=== PATIENT | male | born 1960 | race Caucasian/White ===

== ENCOUNTER 2021-09-01 18:21 | Inpatient (IN) ==
--- NOTE | 2021-09-01 18:38 | Emergency Department Note ---
Impression & Plan DKA (diabetic ketoacidosis) ADMIT ED Provider Note HPI: Patient arrived to the ED via EMS ambulance The patient is a 61-year-old male who presents the emergency department with a chief complaint of altered mental status. Patient was reportedly found in his camper, he has been there for an unknown amount of time. He seemed altered, he was covered in feces, he tells me he was unable to get up because he was weak and feeling dizzy. On arrival here to the ED the patient is alert to self and place but not time, he tells me he thinks it is the year 1999. He states he does drink alcohol and he does smoke marijuana, denies any other drug use. He does not have any focal deficits on arrival, he does not display any [id number] testing ataxia. He is otherwise alert and hemodynamically stable on arrival but he is disheveled appearing, per nursing report he was covered in feces and urine on arrival. ROS: -Neuro: Altered mental status, found down -: Urinary incontinence -GI: Fecal incontinence *10 point review systems was conducted and is otherwise negative unless stated above *Outpatient medications and allergy history reviewed PE: General: Alert, NAD HEENT: Normocephalic, atraumatic, trachea midline, dry mucous membranes Eyes: Extraocular eye movement is intact, no scleral erythema Pulmonary: Clear to auscultation bilaterally, no wheezing Cardio: Tachycardic rate with regular rhythm GI: Abdomen is soft, nontender : No suprapubic tenderness MSK: No evidence of trauma or malformation of the extremities, no edema Skin: No evidence of rash Neuro: Alert, no focal deficits Psychiatric: Cooperative telemetry monitor: - An order was placed for continuous cardiac monitoring - Patient was noted to be in sinus rhythm with rate of 98 EKG: Rate: 109 Rhythm: Sinus tachycardia Intervals: Within normal limits ST changes: No ST elevation Time: 1840 CT HEAD: No acute intracranial hemorrhage, mass effect or edema. No evidence of acute cortical stroke. Visualized sinuses and mastoid air cells are clear. C Radiologist: Stephy Garcia M.D. Medical Decision Making: Patient presented with altered mental status, he was found down in his camper in an altered state, patient tells me he felt too unwell to get up and take care of himself or go to the bathroom. He is alert on arrival, he is saturating well on room air, he is mildly confused but he is oriented to place and self. Labwork shows evidence of diabetic ketoacidosis, blood sugar is elevated greater than 600, patient has an anion gap elevation, serum bicarbonate level is 13. Potassium is within normal limits of 4.1. Interventions included multiple IV fluid boluses, initiation of insulin drip. Imaging including CT imaging of the head does not show any evidence of an acute intracranial process. Chest x-ray does not show any evidence of pneumonia. On re-evaluation the patient is more comfortable appearing, remains mildly confused. He tells me on reevaluation when I asked him if he has any history of diabetes "I remember something about diabetes". He denies being on any medications currently for diabetes. Patient was also started on maintenance fluid with 20 of K to be given with initiation of insulin drip. Case was discussed with the on-call hospitalist, Dr Munguia, and the patient was admitted in improved condition for further management. * CRITICAL CARE TIME: 55 minutes -Stabilization of a patient in diabetic ketoacidosis requiring initiation of insulin drip in addition to aggressive IV fluid resuscitation, interpretation of diagnostic studies, time spent at the bedside, discussion with other healthcare providers and arrangement of admission Diagnosis: 1. Diabetic ketoacidosis 2. Altered mental status 3. Deconditioned state, 4. Urinary and fecal incontinence 5. Generalized weakness, inability to accomplish activities of daily living Disposition: Admission Max Mitchell DO Emergency Medicine Past Med/Surg History Medical History No pertinent past medical history Social History Smoking Status: Smoker, status unknown Tobacco Type: Cigarettes Feels Safe at Home: Yes Allergies Allergies Allergy/AdvReac Type Severity Reaction Status Date / Time No Known Allergies Allergy Verified 09/01/21 20:20 Home Meds Home Medications Medication Instructions Recorded Confirmed vitamin E 400 unit capsule 0 unit PO DAILY 11/27/20 09/01/21 Results & Data (ED) Vital Signs Vital Signs - 24 hr 09/01/21 18:29 09/01/21 18:30 09/01/21 18:40 Temperature Temperature Source Pulse Rate 108 H 110 H 112 H Pulse Rate [Left Finger] Pulse Rate from SpO2 Sensor 108 H 113 H Pulse Rhythm Pulse Rhythm [Left Finger] Pulse Strength Pulse Strength [Left Finger] Respiratory Rate 15 18 16 Respiratory Effort / Characteristics Respiratory Depth Respiratory Pattern Blood Pressure 114/85 Blood Pressure [Right Arm] Blood Pressure Mean 94 Blood Pressure Mean [Right Arm] Blood Pressure Position Blood Pressure Position [Right Arm] Pulse Oximetry 97 98 Oxygen Delivery Method Sepsis Recent Fever Within 48 Hours Sepsis New/Unexplained Change in Mental Status Sepsis Action Taken by Nursing 09/01/21 18:44 09/01/21 19:03 09/01/21 20:00 Temperature 36.2 C L Temperature Source Oral Pulse Rate 108 H Pulse Rate [Left Finger] 107 H 108 H Pulse Rate from SpO2 Sensor Pulse Rhythm Regular Pulse Rhythm [Left Finger] Regular Regular Pulse Strength Normal Pulse Strength [Left Finger] Normal Normal Respiratory Rate 24 18 22 Respiratory Effort / Characteristics Spontaneous Non-Labored Spontaneous Respiratory Depth Normal Normal Normal Respiratory Pattern Regular Regular Tachypnea Blood Pressure 147/94 H Blood Pressure [Right Arm] 150/98 H 149/104 H Blood Pressure Mean 111 Blood Pressure Mean [Right Arm] 115 119 Blood Pressure Position Lying Blood Pressure Position [Right Arm] Lying Lying Pulse Oximetry 97 95 94 Oxygen Delivery Method Room Air Room Air Room Air Sepsis Recent Fever Within 48 Hours No Sepsis New/Unexplained Change in Mental Status N/A Sepsis Action Taken by Nursing Previously Notified Laboratory Data Result diagrams: 09/01/21 19:45 09/01/21 20:46 Lab Results 09/01/21 09/01/21 09/01/21 Range/Units 19:45 19:45 19:45 WBC 13.46 H (4.8-10.8) K/uL RBC 5.25 (4.7-6.1) M/uL Hgb 16.0 (14.0-18.0) g/dL Hct 47.4 (42-52) % MCV 90.3 (80-100) fL MCH 30.5 (25-34) pg MCHC 33.8 (32-36) g/dL RDW Std Deviation 43.0 (36.4-46.3) fL RDW Coeff of Andressa 13.1 (11.5-14.5) % Plt Count 276 (130-400) K/uL MPV 11.1 H (7.4-10.4) fL Immature Gran % (Auto) 0.4 % Neut % (Auto) 79.1 % Lymph % (Auto) 15.2 % Stephens % (Auto) 5.1 % Eos % (Auto) 0.1 % Baso % (Auto) 0.1 % Neut # (Auto) 10.66 H (1.4-6.5) K/uL Lymph # (Auto) 2.04 (1.2-3.4) K/uL Stephens # (Auto) 0.69 H (0.11-0.59) K/uL Eos # (Auto) 0.01 (0-0.5) K/uL Baso # (Auto) 0.01 (0-0.2) K/uL Immature Gran # (Auto) 0.05 H (0.00-0.02) K/uL PT 9.8 (9.0-12.0) Seconds INR 1.0 (0.9-1.1) APTT 26.8 (21.0-31.0) Seconds PTT Ratio 1.0 Sodium 134 L (136-145) mmol/L Potassium 4.1 (3.5-5.1) mmol/L Chloride 99 (98-107) mmol/L Carbon Dioxide 13 L (21-32) mmol/L Anion Gap 19.0 H (3-11) BUN 74 H (7-18) mg/dl Creatinine 1.29 (0.6-1.4) mg/dl Est Cr Clr Drug Dosing 70.7 ml/min Est GFR ( Amer) 68.4 ml/min Est GFR (Non-Af Amer) 59.0 ml/min BUN/Creatinine Ratio 57.3 H (10-20) Glucose 639 H* (70-99) mg/dl Lactate (0.4-2.0) mmol/L Calcium 8.6 (8.5-10.1) mg/dl Phosphorus (2.5-4.9) mg/dl Magnesium 2.8 H (1.8-2.4) mg/dl Total Bilirubin 0.5 (0.2-1) mg/dl AST 42 H (15-37) U/L ALT 152 H (12-78) Alkaline Phosphatase 138 H (45-117) U/L Ammonia Total Creatine Kinase 862 H (39-308) U/L Troponin I < 0.015 (0-0.045) ng/ml Total Protein 7.6 (6.4-8.2) gm/dl Albumin 3.0 L (3.4-5.0) gm/dl Globulin 4.6 H (2.5-4.0) gm/dl Albumin/Globulin Ratio 0.7 L (0.9-2) Beta-Hydroxybutyric Acd TNP Procalcitonin (0-0.5) ng/ml Specimen Hemolysis Urine Color Urine Appearance (Clear) Urine pH (4.5-7.5) Ur Specific [place] (1.000-1.030) Urine Protein (Negative) Urine Glucose (UA) (Negative) Urine Ketones (Negative) Urine Blood (Negative) Urine Nitrite (Negative) Urine Bilirubin (Negative) Urine Urobilinogen (Negative) Ur Leukocyte Esterase (Negative) Urine WBC (Auto) (0-5) /hpf Urine RBC (Auto) (0-4) /hpf U Hyaline Cast (Auto) (0-5) /lpf U Epithel Cells (Auto) (0-5) /lpf Urine Bacteria (Auto) (Negative) Urine Opiates Screen (Neg) Ur Methadone, Qual (Neg) Urine Barbiturates (Neg) Ur Phencyclidine (PCP) (Neg) U Amphetamin/Meth Scrn (Neg) MDMA (Ecstasy) Screen (Neg) U Benzodiazepines Scrn (Neg) Ur Cocaine Metabolite (Neg) U Marijuana (THC) Screen (Neg) Ethyl Alcohol mg/dL (0-3) mg/dl 09/01/21 09/01/21 09/01/21 Range/Units 19:45 19:45 19:52 WBC (4.8-10.8) K/uL RBC (4.7-6.1) M/uL Hgb (14.0-18.0) g/dL Hct (42-52) % MCV (80-100) fL MCH (25-34) pg MCHC (32-36) g/dL RDW Std Deviation (36.4-46.3) fL RDW Coeff of Andressa (11.5-14.5) % Plt Count (130-400) K/uL MPV (7.4-10.4) fL Immature Gran % (Auto) % Neut % (Auto) % Lymph % (Auto) % Stephens % (Auto) % Eos % (Auto) % Baso % (Auto) % Neut # (Auto) (1.4-6.5) K/uL Lymph # (Auto) (1.2-3.4) K/uL Stephens # (Auto) (0.11-0.59) K/uL Eos # (Auto) (0-0.5) K/uL Baso # (Auto) (0-0.2) K/uL Immature Gran # (Auto) (0.00-0.02) K/uL PT (9.0-12.0) Seconds INR (0.9-1.1) APTT (21.0-31.0) Seconds PTT Ratio Sodium (136-145) mmol/L Potassium (3.5-5.1) mmol/L Chloride (98-107) mmol/L Carbon Dioxide (21-32) mmol/L Anion Gap (3-11) BUN (7-18) mg/dl Creatinine (0.6-1.4) mg/dl Est Cr Clr Drug Dosing ml/min Est GFR ( Amer) ml/min Est GFR (Non-Af Amer) ml/min BUN/Creatinine Ratio (10-20) Glucose (70-99) mg/dl Lactate < 0.1 L (0.4-2.0) mmol/L Calcium (8.5-10.1) mg/dl Phosphorus (2.5-4.9) mg/dl Magnesium (1.8-2.4) mg/dl Total Bilirubin (0.2-1) mg/dl AST (15-37) U/L ALT (12-78) Alkaline Phosphatase (45-117) U/L Ammonia Cancelled Total Creatine Kinase (39-308) U/L Troponin I (0-0.045) ng/ml Total Protein (6.4-8.2) gm/dl Albumin (3.4-5.0) gm/dl Globulin (2.5-4.0) gm/dl Albumin/Globulin Ratio (0.9-2) Beta-Hydroxybutyric Acd Procalcitonin 0.91 H (0-0.5) ng/ml Specimen Hemolysis Urine Color Urine Appearance (Clear) Urine pH (4.5-7.5) Ur Specific [place] (1.000-1.030) Urine Protein (Negative) Urine Glucose (UA) (Negative) Urine Ketones (Negative) Urine Blood (Negative) Urine Nitrite (Negative) Urine Bilirubin (Negative) Urine Urobilinogen (Negative) Ur Leukocyte Esterase (Negative) Urine WBC (Auto) (0-5) /hpf Urine RBC (Auto) (0-4) /hpf U Hyaline Cast (Auto) (0-5) /lpf U Epithel Cells (Auto) (0-5) /lpf Urine Bacteria (Auto) (Negative) Urine Opiates Screen (Neg) Ur Methadone, Qual (Neg) Urine Barbiturates (Neg) Ur Phencyclidine (PCP) (Neg) U Amphetamin/Meth Scrn (Neg) MDMA (Ecstasy) Screen (Neg) U Benzodiazepines Scrn (Neg) Ur Cocaine Metabolite (Neg) U Marijuana (THC) Screen (Neg) Ethyl Alcohol mg/dL (0-3) mg/dl 09/01/21 09/01/21 09/01/21 Range/Units 19:52 20:46 Unknown WBC (4.8-10.8) K/uL RBC (4.7-6.1) M/uL Hgb (14.0-18.0) g/dL Hct (42-52) % MCV (80-100) fL MCH (25-34) pg MCHC (32-36) g/dL RDW Std Deviation (36.4-46.3) fL RDW Coeff of Andressa (11.5-14.5) % Plt Count (130-400) K/uL MPV (7.4-10.4) fL Immature Gran % (Auto) % Neut % (Auto) % Lymph % (Auto) % Stephens % (Auto) % Eos % (Auto) % Baso % (Auto) % Neut # (Auto) (1.4-6.5) K/uL Lymph # (Auto) (1.2-3.4) K/uL Stephens # (Auto) (0.11-0.59) K/uL Eos # (Auto) (0-0.5) K/uL Baso # (Auto) (0-0.2) K/uL Immature Gran # (Auto) (0.00-0.02) K/uL PT (9.0-12.0) Seconds INR (0.9-1.1) APTT (21.0-31.0) Seconds PTT Ratio Sodium 134 L (136-145) mmol/L Potassium 4.1 (3.5-5.1) mmol/L Chloride 102 (98-107) mmol/L Carbon Dioxide 12 L (21-32) mmol/L Anion Gap 19.0 H (3-11) BUN 75 H (7-18) mg/dl Creatinine 1.27 (0.6-1.4) mg/dl Est Cr Clr Drug Dosing 71.8 ml/min Est GFR ( Amer) 69.7 ml/min Est GFR (Non-Af Amer) 60.2 ml/min BUN/Creatinine Ratio 59.2 H (10-20) Glucose 608 H* (70-99) mg/dl Lactate (0.4-2.0) mmol/L Calcium 9.0 (8.5-10.1) mg/dl Phosphorus 5.8 H (2.5-4.9) mg/dl Magnesium 2.8 H (1.8-2.4) mg/dl Total Bilirubin (0.2-1) mg/dl AST (15-37) U/L ALT (12-78) Alkaline Phosphatase (45-117) U/L Ammonia Total Creatine Kinase (39-308) U/L Troponin I (0-0.045) ng/ml Total Protein (6.4-8.2) gm/dl Albumin (3.4-5.0) gm/dl Globulin (2.5-4.0) gm/dl Albumin/Globulin Ratio (0.9-2) Beta-Hydroxybutyric Acd Procalcitonin (0-0.5) ng/ml Specimen Hemolysis Urine Color Yellow Urine Appearance Clear (Clear) Urine pH 5.0 (4.5-7.5) Ur Specific [place] 1.025 (1.000-1.030) Urine Protein Trace H (Negative) Urine Glucose (UA) 3+ H (Negative) Urine Ketones 1+ H (Negative) Urine Blood 2+ H (Negative) Urine Nitrite Negative (Negative) Urine Bilirubin Negative (Negative) Urine Urobilinogen Negative (Negative) Ur Leukocyte Esterase Negative (Negative) Urine WBC (Auto) 1-5 (0-5) /hpf Urine RBC (Auto) 0-4 (0-4) /hpf U Hyaline Cast (Auto) 1-5 (0-5) /lpf U Epithel Cells (Auto) 10-20 H (0-5) /lpf Urine Bacteria (Auto) Negative (Negative) Urine Opiates Screen (Neg) Ur Methadone, Qual (Neg) Urine Barbiturates (Neg) Ur Phencyclidine (PCP) (Neg) U Amphetamin/Meth Scrn (Neg) MDMA (Ecstasy) Screen (Neg) U Benzodiazepines Scrn (Neg) Ur Cocaine Metabolite (Neg) U Marijuana (THC) Screen (Neg) Ethyl Alcohol mg/dL < 3.0 (0-3) mg/dl 09/01/21 Range/Units Unknown WBC (4.8-10.8) K/uL RBC (4.7-6.1) M/uL Hgb (14.0-18.0) g/dL Hct (42-52) % MCV (80-100) fL MCH (25-34) pg MCHC (32-36) g/dL RDW Std Deviation (36.4-46.3) fL RDW Coeff of Andressa (11.5-14.5) % Plt Count (130-400) K/uL MPV (7.4-10.4) fL Immature Gran % (Auto) % Neut % (Auto) % Lymph % (Auto) % Stephens % (Auto) % Eos % (Auto) % Baso % (Auto) % Neut # (Auto) (1.4-6.5) K/uL Lymph # (Auto) (1.2-3.4) K/uL Stephens # (Auto) (0.11-0.59) K/uL Eos # (Auto) (0-0.5) K/uL Baso # (Auto) (0-0.2) K/uL Immature Gran # (Auto) (0.00-0.02) K/uL PT (9.0-12.0) Seconds INR (0.9-1.1) APTT (21.0-31.0) Seconds PTT Ratio Sodium (136-145) mmol/L Potassium (3.5-5.1) mmol/L Chloride (98-107) mmol/L Carbon Dioxide (21-32) mmol/L Anion Gap (3-11) BUN (7-18) mg/dl Creatinine (0.6-1.4) mg/dl Est Cr Clr Drug Dosing ml/min Est GFR ( Amer) ml/min Est GFR (Non-Af Amer) ml/min BUN/Creatinine Ratio (10-20) Glucose (70-99) mg/dl Lactate (0.4-2.0) mmol/L Calcium (8.5-10.1) mg/dl Phosphorus (2.5-4.9) mg/dl Magnesium (1.8-2.4) mg/dl Total Bilirubin (0.2-1) mg/dl AST (15-37) U/L ALT (12-78) Alkaline Phosphatase (45-117) U/L Ammonia Total Creatine Kinase (39-308) U/L Troponin I (0-0.045) ng/ml Total Protein (6.4-8.2) gm/dl Albumin (3.4-5.0) gm/dl Globulin (2.5-4.0) gm/dl Albumin/Globulin Ratio (0.9-2) Beta-Hydroxybutyric Acd Procalcitonin (0-0.5) ng/ml Specimen Hemolysis Urine Color Urine Appearance (Clear) Urine pH (4.5-7.5) Ur Specific [place] (1.000-1.030) Urine Protein (Negative) Urine Glucose (UA) (Negative) Urine Ketones (Negative) Urine Blood (Negative) Urine Nitrite (Negative) Urine Bilirubin (Negative) Urine Urobilinogen (Negative) Ur Leukocyte Esterase (Negative) Urine WBC (Auto) (0-5) /hpf Urine RBC (Auto) (0-4) /hpf U Hyaline Cast (Auto) (0-5) /lpf U Epithel Cells (Auto) (0-5) /lpf Urine Bacteria (Auto) (Negative) Urine Opiates Screen Neg (Neg) Ur Methadone, Qual Neg (Neg) Urine Barbiturates Neg (Neg) Ur Phencyclidine (PCP) Neg (Neg) U Amphetamin/Meth Scrn Neg (Neg) MDMA (Ecstasy) Screen Neg (Neg) U Benzodiazepines Scrn Neg (Neg) Ur Cocaine Metabolite Neg (Neg) U Marijuana (THC) Screen Neg (Neg) Ethyl Alcohol mg/dL (0-3) mg/dl Administered Medications Discontinued Medications Sodium Chloride (Nss 1000ml) 1,000 mls @ 999 mls/hr IV .Q1H1M [facility] Stop: 09/01/21 19:45 Last Infusion: 09/01/21 20:04 Dose: 0 mls/hr Documented by: [id number] Admin: 09/01/21 18:44 Dose: 999 mls/hr Documented by: [id number] Sodium Chloride (Nss 1000ml) 1,000 mls @ 999 mls/hr IV .Q1H1M [facility] Stop: 09/01/21 21:26 Last Admin: 09/01/21 21:07 Dose: 999 mls/hr Documented by: [id number] Imaging Data Radiologist's Impression: Chest X-Ray 09/01/21 18:33 XR chest 1V portable HISTORY: 61 years-old Male SEPSIS acute sepsis COMPARISON: Left shoulder radiographs 11/27/2020 TECHNIQUE: AP view of the chest FINDINGS: Cardiac silhouette is upper limits of normal in size. No pneumothorax, large pleural effusion, airspace consolidation or overt pulmonary edema. Mild interstitial coarsening of the lung bases. Healed chronic left-sided rib fractures. Degenerative changes of the shoulders and spine. IMPRESSION: Mild interstitial coarsening of the lung bases suggests atelectasis or summation density. A mild pneumonitis is considered less likely. ACT 112: Negative or not required by law. The above report was generated using voice recognition software. It may contain grammatical, syntax or spelling errors. Electronically signed by: Chencho Ross M.D. 09/01/2021 6:52 PM Discharge Plan Visit Data Chief Complaint: Illness Stated Complaint: Illness ED Provider: Max Mitchell Discharge Problem: DKA (diabetic ketoacidosis) Patient Disposition: Admitted As Inpatient Forms Stand Alone Forms: [facility] Prescriptions Prescriptions: No Action vitamin E 400 unit Capsule 0 unit PO DAILY RF: 0 Referrals Referrals: PCP,NO [Primary Care Provider] -
[2021-09-01] MEDS ORDERED: SODIUM CHLORIDE 0.9% 1000ML 1,000 ML IV SCH (18:45)
--- NOTE | 2021-09-01 18:54 | XRay Report ---
XR chest 1V portable HISTORY: 61 years-old Male SEPSIS acute sepsis COMPARISON: Left shoulder radiographs 11/27/2020 TECHNIQUE: AP view of the chest FINDINGS: Cardiac silhouette is upper limits of normal in size. No pneumothorax, large pleural effusion, airspa ce consolidation or overt pulmonary edema. Mild interstitial coarsening of the lung bases. Healed chr onic left-sided rib fractures. Degenerative changes of the shoulders and spine. IMPRESSION: Mild interstitial coarsening of the lung bases suggests atelectasis or summation density. A mild pneumonitis is considered less likely. ACT 112: Negative or not required by law. The above report was generated using voice recognition software. It may contain grammatical, syntax o r spelling errors. Electronically signed by: Chencho Ross M.D. 09/01/2021 6:52 PM
[2021-09-01 19:47] LABS: Appearance Urine Clear (Clear); Bacteria Urine Automated Negative (Negative); Bilirubin Urine Negative (Negative); Blood Urine 2+ (Negative); Color Urine Yellow; Glucose Urine UA 3+ (Negative); Ketones Urine 1+ (Negative); Leukocyte Esterase Urine Negative (Negative); Nitrite Urine Negative (Negative); Protein Urine Trace (Negative); RBC Urine Automated 0-4 /hpf (0-4); Specific Gravity Urine 1.025 (1.000-1.030); Urobilinogen Urine Negative (Negative)
[2021-09-01 19:59] LABS: Basophils # (auto) 0.01 K/uL (0-0.2); Basophils % (auto) 0.1 %; Eosinophils # (auto) 0.01 K/uL (0-0.5); Eosinophils % (auto) 0.1 %; Hematocrit (blood only) 47.4 % (42-52); Immature Granulocytes # (auto) 0.05 K/uL (0.00-0.02); Immature Granulocytes % (auto) 0.4 %; Lymphocytes # (auto) 2.04 K/uL (1.2-3.4); Lymphocytes % (auto) 15.2 %; Mean Corpuscular Hemoglobin 30.5 pg (25-34); Mean Corpuscular Hgb Conc 33.8 g/dL (32-36); Mean Corpuscular Volume 90.3 fL (80-100); Mean Platelet Volume 11.1 fL (7.4-10.4); Monocytes # (auto) 0.69 K/uL (0.11-0.59); Monocytes % (auto) 5.1 %; Neutrophils # (auto) 10.66 K/uL (1.4-6.5); Neutrophils % (auto) 79.1 %; Platelet Count 276 K/uL (130-400); RDW Coefficient of Variation 13.1 % (11.5-14.5); Red Blood Count 5.25 M/uL (4.7-6.1); White Blood Count 13.46 K/uL (4.8-10.8)
[2021-09-01 20:02] LABS: Amphetamines+Metham, Urine Neg (Neg); Barbiturates, Urine Neg (Neg); Benzodiazepine, Urine Neg (Neg); Cocaine, Urine Neg (Neg); MDMA (Ecstacy), Urine Neg (Neg); Methadone, Urine Neg (Neg); Opiate, Urine Neg (Neg); Phencyclidine, Urine Neg (Neg)
[2021-09-01 20:07] LABS: Partial Thromboplastin Time 26.8 Seconds (21.0-31.0); Prothrombin Time 9.8 Seconds (9.0-12.0)
[2021-09-01 20:23] LABS: Alanine Aminotransferase 152 (12-78); Albumin Globulin Ratio 0.7 (0.9-2); Alkaline Phosphatase 138 U/L (45-117); BUN Creatinine Ratio 57.3 (10-20); Bilirubin,Total 0.5 mg/dl (0.2-1); Blood Urea Nitrogen 74 mg/dl (7-18); Calcium 8.6 mg/dl (8.5-10.1); Carbon Dioxide 13 mmol/L (21-32); Chloride 99 mmol/L (98-107); Creatinine Clr Calc Pharmacy 70.7 ml/min; Est GFR (African American) 68.4 ml/min; Globulin 4.6 gm/dl (2.5-4.0); Glucose 639 mg/dl (70-99); Total Protein 7.6 gm/dl (6.4-8.2); Troponin I < 0.015 ng/ml (0-0.045)
[2021-09-01] MEDS ORDERED: SODIUM CHLORIDE 0.9% 1000ML 1,000 ML IV ONE (20:26)
[2021-09-01 20:48] LABS: Potassium 4.1 mmol/L (3.5-5.1); Sodium 134 mmol/L (136-145)
[2021-09-01 20:53] LABS: Aspartate Aminotransferase 42 U/L (15-37); Creatine Kinase 862 U/L (39-308); Magnesium 2.8 mg/dl (1.8-2.4)
[2021-09-01] MEDS ORDERED: STAT IV Infusion **Titration per Protocol STA ×4 (20:56→23:12)
[2021-09-01] MEDS ORDERED: NSS + 20MEQ KCL 20 MEQ/1,000 ML BAG IV SCH (21:00)
[2021-09-01] MEDS ORDERED: INSULIN REGULAR 250 UNITS in SODIUM CHLORIDE 0.9% 247.5 ML IV SCH (21:00)
[2021-09-01] MEDS ORDERED: INSULIN ASPART PER UNIT SC SCH (21:00)
[2021-09-01 21:40] LABS: BUN Creatinine Ratio 59.2 (10-20); Creatinine Clr Calc Pharmacy 71.8 ml/min; Est GFR (African American) 69.7 ml/min; Est GFR (Non-African American) 60.2 ml/min; Magnesium 2.8 mg/dl (1.8-2.4); Phosphorus 5.8 mg/dl (2.5-4.9); Potassium 4.1 mmol/L (3.5-5.1)
[2021-09-01] MEDS ORDERED: NovoLIN-R BOLUS FROM BAG IV ONE (22:00)
[2021-09-01] MEDS: INSULIN REGULAR 250 UNITS in SODIUM CHLORIDE 0.9% 247.5 ML IV SCH (22:10)
[2021-09-01 22:15] LABS: Beta-Hydroxybutyrate 72.44 mg/dl (0.2-2.81)
--- NOTE | 2021-09-02 00:55 | History and Physical Report ---
DATE OF ADMISSION: 09/01/2021. CHIEF COMPLAINT: Altered mental status, DKA. HISTORY OF PRESENT ILLNESS: This is a 61-year-old male with past medical history significant for diabetes. The patient says he was told he was diabetic a long time back in [facility] but not taking any meds..He does not go to the doctor often. He denies any other medical problems, not on any medication at home. He was found to be confused in his camper and with feces all over. The patient says he fell a couple of days ago and he was having imbalance and could not get up. He says he is drinking lot of milk. He says his neighbor found him. Currently, he is alert and awake. Can answer simple questions. Somewhat slow to answer, but answers appropriately. Denies any fever or chills. Denies any cough. No chest pain, no shortness of breath. Denies any nausea, denies any headache. No neck pain, no back pain, no abdominal pain. Has some mild sore throat. Says he had some mild chest pain before, but that is resolved now. Denies any shortness of breath. He has normal bladder movements. He states he smoked half pack of cigarettes for many, many years and occasional alcohol. He smokes marijuana occasionally. He is not COVID vaccinated or flu vaccinated. Currently is somewhat tachycardic. Blood pressure is okay. Saturating okay on room air. ALLERGIES: No known drug allergies. PAST MEDICAL HISTORY: As mentioned above. PAST SURGICAL HISTORY: He says he had tonsillectomy. He had lower extremity surgery for accident. MEDICATIONS: None. FAMILY HISTORY: Unknown at this time. SOCIAL HISTORY: He smokes half pack a day for many years. Alcohol once in a while. He smokes marijuana once in a while. REVIEW OF SYSTEMS: As per HPI. Could not get complete review of systems as the patient is somewhat of a poor historian. PHYSICAL EXAMINATION: GENERAL: The patient is alert and awake, not in acute distress. VITAL SIGNS: Temperature 36.2, pulse 118, respiratory rate 18, blood pressure 152/99, oxygen 97% on room air. HEENT: Pupils equal, round and reactive to light. Oral mucosa moist. NECK: No JVD, no neck masses. CARDIOVASCULAR: S1 and S2 heard. Tachycardia. No murmurs. RESPIRATORY SYSTEM: Normal AP diameter. No accessory muscle use. No wheezing, no crackles. ABDOMEN: Soft, bowel sounds present, nontender, no distention. CENTRAL NERVOUS SYSTEM: Alert, awake, and seems oriented. Speech is clear, somewhat slow to speak. No facial droop. Obeys simple commands. Moves extremities. Insight okay. EXTREMITIES: No edema, no erythema. LABORATORY DATA: WBC 13.4, hemoglobin 16, hematocrit 47.4, platelets 276. PT 9.8, INR 1, APTT 26.8. Sodium 134, potassium 4.1, chloride 102, bicarbonate 12, BUN 75, creatinine 1.2, serum glucose 608. Lactate less than 0.1, calcium 9, phosphorus 5.8, magnesium 2.8, total bilirubin 0.5, AST 242, ALT 152, alkaline phosphatase 138. Total creatine kinase 862. Troponin I less than 0.015. Procalcitonin 0.9. Urinalysis, +3 glucose, ketones, +2 blood. Urine drug screen negative. Alcohol negative. SARS-CoV-2 RNA negative. IMAGING DATA: CT of the head, preliminary report is unremarkable. Chest x-ray, mild interstitial coarsening in lung bases and atelectasis, mild pneumonitis is considered less likely. EKG: Sinus tachycardia at a rate of 109, no significant change was found. ASSESSMENT AND PLAN: This is a 61-year-old male who presents with altered mental status and found to have diabetic ketoacidosis. 1. Diabetic ketoacidosis: Metabolic encephalopathy most likely secondary to diabetic ketoacidosis. The patient says he was told he has diabetes a long time back, but does not taking any medications. Aggressive IV fluids, insulin drip protocol as per DKA protocol, labs as per DKA protocol. Follow HbA1c in the a.m. Will continue insulin drip and maintenance fluids until anion gap is closed, then may change to sliding scale. Glycemic pharmacy consult. Diabetic education. Closely monitor in the [employer]. 2. Currently, somewhat hypertension, will monitor. 3. Rhabdomyolysis: CK of 862, mild transaminitis. Will follow the repeat labs. If still elevated, will get a CT scan of the abdomen. 4. Mild elevation of procalcitonin and mild leukocytosis: Empirically started on Rocephin. Will follow the labs. 5. Deep venous thrombosis prophylaxis: Lovenox. DISPOSITION: Closely monitor in the [employer] tele. Level 1 full code. Expect to discharge home and follow with family doctor. Job ID: [id number] [facility] HOSPITALBernie
[2021-09-02 01:39] LABS: BUN Creatinine Ratio 53.1 (10-20); Creatinine Clr Calc Pharmacy 74.8 ml/min; Est GFR (African American) 73.2 ml/min; Est GFR (Non-African American) 63.1 ml/min; Magnesium 2.7 mg/dl (1.8-2.4); Phosphorus 3.8 mg/dl (2.5-4.9); Potassium 3.3 mmol/L (3.5-5.1)
[2021-09-02] MEDS ORDERED: ACETAMINOPHEN 325 MG TAB PO PRN (02:26)
[2021-09-02] MEDS ORDERED: PENDING D5 1/2NS+20mEq KCL IVF ONE (02:26)
[2021-09-02] MEDS ORDERED: ONDANSETRON INJ 2 MG/ML 2 ML VIAL IV PRN (02:26)
[2021-09-02] MEDS ORDERED: DC ALL PREVIOUSLY ORDERED DIABETES MEDS ONE (02:26)
[2021-09-02] MEDS ORDERED: PHARMACY GLYCEMIC MGMT CONSULT PRN (02:26)
[2021-09-02] MEDS ORDERED: NITROGLYCERIN SL 0.4 MG/TAB TAB SL PRN (02:26)
[2021-09-02] MEDS ORDERED: PENDING 1/2NSS+20mEq KCL IVF SCH (02:26)
[2021-09-02] MEDS ORDERED: INSULIN REGULAR 250 UNITS in SODIUM CHLORIDE 0.9% 247.5 ML IV SCH (02:26)
[2021-09-02] MEDS ORDERED: DEXTROSE 50% 50 ML SYRINGE IV PRN (03:15)
[2021-09-02] MEDS ORDERED: CARBOHYDRATES FOR HYPOGLYCEMIA PO PRN (03:15)
[2021-09-02] MEDS ORDERED: GLUCOSE 10 TABS/TUBE PO PRN (03:15)
[2021-09-02] MEDS ORDERED: GLUCAGON FOR INJ 1 MG VIAL IM PRN (03:15)
[2021-09-02] MEDS ORDERED: GLUCOSE 40% GEL 15 GM TUBE PO PRN (03:15)
[2021-09-02] MEDS: cefTRIAXone SODIUM 2,000 MG in DEXTROSE 5% 50 ML IV SCH (03:36)
[2021-09-02] MEDS ORDERED: POTASSIUM CHLORIDE CRTAB 20 MEQ TABCR PO STA (04:23)
[2021-09-02 06:09] LABS: BUN Creatinine Ratio 51.9 (10-20); Calcium 8.7 mg/dl (8.5-10.1); Est GFR (African American) 86.8 ml/min; Est GFR (Non-African American) 74.8 ml/min; Magnesium 2.6 mg/dl (1.8-2.4); Potassium 3.4 mmol/L (3.5-5.1)
[2021-09-02 06:10] LABS: Phosphorus 2.6 mg/dl (2.5-4.9)
[2021-09-02 06:16] LABS: Alanine Aminotransferase 118 (12-78); Albumin Level 2.8 gm/dl (3.4-5.0); Alkaline Phosphatase 99 U/L (45-117); Aspartate Aminotransferase 46 U/L (15-37); Bilirubin Direct 0.1 mg/dl (0-0.2); Bilirubin,Total 0.4 mg/dl (0.2-1); Creatine Kinase 759 U/L (39-308); Total Protein 6.7 gm/dl (6.4-8.2); Troponin I < 0.015 ng/ml (0-0.045)
[2021-09-02 07:55] LABS: Estimated Average Glucose 372 mg/dl; Hemoglobin A1C 14.6 % (4.5-5.6)
--- NOTE | 2021-09-02 07:57 | CT Scan Report ---
CT OF THE HEAD WITHOUT CONTRAST CLINICAL HISTORY: Altered mental status. COMPARISON STUDY: No previous studies for comparison. CT DOSE: 614.27 mGy.cm TECHNIQUE: Helical axial images of the head were obtained without IV contrast. Automated exposure con trol was utilized for the study. A dose lowering technique was utilized adhering to the principles o f ALARA. FINDINGS: No acute intracranial hemorrhage, midline shift or mass effect is present. Mild white matte r hypodensities favor small vessel disease. The ventricular system is unremarkable. The basal cistern s are patent. No extra-axial collections are present. There are no findings to suggest acute dural si nus thrombosis or acute territorial infarct. No significant calvarial abnormalities are present. Visu alized portions of the sinuses and mastoid air cells are clear. IMPRESSION: No acute intracranial findings. ACT 112: Negative or not required by law. Electronically signed by: Shravan Martinez M.D. 09/02/2021 7:55 AM
[2021-09-02] MEDS: ENOXAPARIN INJ 40 MG/0.4 ML SYR SQ SCH (08:16)
[2021-09-02] MEDS: D5W AND 1/2NSS + 20MEQ KCL 20 MEQ/1,000 ML BAG IV SCH ×2 (09:25→17:40)
[2021-09-02] MEDS: INSULIN ASPART PER UNIT SC SCH ×4 (09:45→20:45)
[2021-09-02 11:17] LABS: BUN Creatinine Ratio 45.8 (10-20); Calcium 8.8 mg/dl (8.5-10.1); Creatinine Clr Calc Pharmacy 92.1 ml/min; Est GFR (African American) 94.2 ml/min; Est GFR (Non-African American) 81.3 ml/min; Magnesium 2.6 mg/dl (1.8-2.4); Phosphorus 2.1 mg/dl (2.5-4.9); Potassium 3.7 mmol/L (3.5-5.1)
[2021-09-02] MEDS ORDERED: INSULIN GLARGINE SOLOSTAR 100 UNITS/ML 3 ML PEN SC ONE ×2 (13:30→21:00)
--- NOTE | 2021-09-02 13:57 | Pharmacy Report ---
Pharmacy Glycemic Short Note 2 - Date of Service September 02, 2021 - Glycemic Short BSG Results (Last 24 hours): 09/01/21 09/01/21 09/01/21 19:45 20:46 22:08 Glucose 639 H* 608 H* POC Glucose 535 H* 09/01/21 09/02/21 09/02/21 23:18 00:54 01:11 Glucose 237 H POC Glucose 415 H* 296 H 09/02/21 09/02/21 09/02/21 01:34 02:38 03:27 Glucose POC Glucose 228 H 227 H 182 H 09/02/21 09/02/21 09/02/21 04:44 05:27 05:37 Glucose 215 H POC Glucose 218 H 228 H 09/02/21 09/02/21 09/02/21 07:17 08:25 09:23 Glucose POC Glucose 326 H* 273 H 206 H 09/02/21 09/02/21 09/02/21 10:26 10:31 11:28 Glucose 206 H POC Glucose 271 H 227 H 09/02/21 09/02/21 12:24 13:24 Glucose POC Glucose 172 H 143 H OUTPATIENT ANTIDIABETIC REGIMEN: * N/A * A1c 14.6% 09/02/21 ASSESSMENT: * 61 year old admitted with AMS, DKA, uncontrolled diabetic on no anti-diabetic medications at home. * Started on insulin drip and DKA protocol last night, remains on D51/2NS + 20KCl IVF, IV Ceftriaxone, patient is NPO * Drip rat running 10-3.8units/hr, in goal range, anion gap closed * Start basal insulin at this time, overlap x 6 hours or stop insulin drip when it turns off per calculator PLAN FOR INPATIENT GLYCEMIC CONTROL: * IV Insulin drip, goal range 110-180mg/dl * Basal insulin * Lantus 50 units SQ x 1 now, then 25 units HS For BSG > 180mg/dl, then further dosing in AM * Bolus insulin: When insulin drip is off * NovoLog per scale ACHS or Q6hrs while NPO + overnight tonight at 0000 and 0 400 * Goal Range: Low 110 mg/dL - High 140 mg/dL * Correction Factor: 15 mg/dL/unit * Nutritional / Prandial insulin per carb ratio of 1 unit per 5 grams CHO consumed PLAN FOR DISCHARGE: * to be determined, recommend at least once daily Lantus
[2021-09-02 14:41] LABS: BUN Creatinine Ratio 45.8 (10-20); Calcium 8.3 mg/dl (8.5-10.1); Creatinine Clr Calc Pharmacy 109.9 ml/min; Est GFR (African American) 109.3 ml/min; Est GFR (Non-African American) 94.3 ml/min; Magnesium 2.4 mg/dl (1.8-2.4); Potassium 3.8 mmol/L (3.5-5.1)
[2021-09-02 14:42] LABS: Phosphorus 1.7 mg/dl (2.5-4.9)
[2021-09-02] MEDS ORDERED: Nursing to Pharmacy Communication SCH (16:00)
--- NOTE | 2021-09-02 16:30 | Hospitalist Progress Note ---
Date of Service September 02, 2021 Assessment & Plan (1) DKA (diabetic ketoacidosis): Plan: He has history of diabetes but has not been to a doctor for a long time Was admitted with altered mental status and in an unkept condition Noted to have DKA on admission Has been put on intravenous insulin and fluid with electrolytes Glycemic pharmacy has been consulted Has been feeling better since admission (2) Altered mental status: Plan: Likely secondary to diabetic ketoacidosis Doubt any infection but ceftriaxone has been started Has minimal leukocytosis could be secondary to ketoacidosis (3) Leukocytosis: Plan: As above Mild rhabdomyolysis He was found on the floor CK is 862 Has been getting intravenous fluid and monitor CK Mild transaminitis Likely secondary to fatty liver We will monitor DVT prophylaxis Subcu Lovenox Admission and Anticipated Discharge Date Admission Date: September 01, 2021 Subjective 09/02/2021 The patient was seen and examined in medical telemetry unit She has been feeling much better and the confusion is seems to be resolving Denies any other symptoms Review of Systems Review of Systems: All systems reviewed and are unremarkable except as noted below Physical Exam Physical Exam: Lying in bed comfortably Constitutional: well developed, well nourished, + ill appearing and + obese Eyes: PERRL, conjunctivae normal, anicteric sclerae ENMT: external ear and nose normal, oropharynx normal Neck: trachea midline, no thyromegaly Respiratory: no respiratory distress Auscultation: lungs clear to auscultation bilaterally and + diminished lung sounds Cardiovascular: Rate/Rhythm: regular rate, regular rhythm and + tachycardic Heart Sounds: normal S1 and normal S2; no murmur Extremities: + edema (1+ edema bilaterally) Gastrointestinal (Abdomen): Inspection/Auscultation: + abdomen distended and normal bowel sounds Percussion/Palpation: abdomen soft; abdomen nontender Musculoskeletal: No acute arthritis in any joint Neurologic: Alert, awake and oriented x3. No focal sensory and motor deficit appreciated Lymphatic: no cervical or axillary lymphadenopathy Results & Data Results & Data ([facility]) Vital Signs (Past 12 Hours) Vital Signs Pulse Pulse Resp BP Pulse Ox 09/02/21 16:00 99 H 09/02/21 15:06 92 H 18 124/81 96 09/02/21 11:39 98 H 19 156/97 H 95 09/02/21 07:23 101 H 23 126/78 95 09/02/21 06:37 101 H 14 128/85 98 Laboratory Results Short CBC 09/01/21 Range/Units 19:45 WBC 13.46 H (4.8-10.8) K/uL Hgb 16.0 (14.0-18.0) g/dL Hct 47.4 (42-52) % Plt Count 276 (130-400) K/uL BMP 09/01/21 09/01/21 09/02/21 19:45 20:46 01:11 Sodium 134 L 134 L 138 Potassium 4.1 4.1 3.3 L D Chloride 99 102 107 Carbon Dioxide 13 L 12 L 18 L BUN 74 H 75 H 65 H Creatinine 1.29 1.27 1.22 Glucose 639 H* 608 H* 237 H Calcium 8.6 9.0 9.0 09/02/21 09/02/21 09/02/21 05:27 10:31 14:18 Sodium 136 137 139 Potassium 3.4 L 3.7 3.8 Chloride 107 109 H 111 H Carbon Dioxide 22 BUN 55 H 45 H 38 H Creatinine 1.06 0.99 0.83 Glucose 215 H 206 H 160 H Calcium 8.7 8.8 8.3 L Cardiac Enzymes 09/01/21 09/02/21 Range/Units 19:45 05:27 Total Creatine Kinase 862 H 759 H (39-308) U/L Troponin I < 0.015 < 0.015 (0-0.045) ng/ml Liver Function 09/01/21 09/02/21 Range/Units 19:45 05:27 Total Bilirubin 0.5 0.4 (0.2-1) mg/dl Direct Bilirubin 0.1 (0-0.2) mg/dl AST 42 H 46 H (15-37) U/L ALT 152 H 118 H (12-78) Alkaline Phosphatase 138 H 99 (45-117) U/L Albumin 3.0 L 2.8 L (3.4-5.0) gm/dl Urine 09/01/21 Range/Units Unknown Urine Color Yellow Urine Appearance Clear (Clear) Urine pH 5.0 (4.5-7.5) Ur Specific [place] 1.025 (1.000-1.030) Urine Protein Trace H (Negative) Urine Glucose (UA) 3+ H (Negative) Medications Administered Current Inpatient Medications Acetaminophen (Acetaminophen 325 Mg Tab) 650 mg PO Q4H PRN PRN Reason: Pain or Fever Stop: 10/02/21 02:25 Dextrose (Dextrose 50% 50 Ml Syringe) 25 - 50 ml IV UD PRN; Protocol PRN Reason: Hypoglycemia Protocol Stop: 10/02/21 03:14 Enoxaparin Sodium (Enoxaparin Inj 40 Mg/0.4 Ml Syr) 40 mg SQ Q24H [facility] Stop: 10/02/21 08:59 Last Admin: 09/02/21 08:16 Dose: 40 mg Documented by: Glucagon (Glucagon For Inj 1 Mg Vial) 1 mg IM UD PRN; Protocol PRN Reason: Hypoglycemia Protocol Stop: 10/02/21 03:14 Glucose (Glucose 40% Gel 15 Gm Tube) 15 - 30 gm PO UD PRN; Protocol PRN Reason: Hypoglycemia Protocol Stop: 10/02/21 03:14 Glucose (Glucose 10 Tabs/Tube) 4 - 8 tabs PO UD PRN; Protocol PRN Reason: Hypoglycemia Protocol Stop: 10/02/21 03:14 Insulin Human Regular 250 (units/ Sodium Chloride) 250 mls @ 4.6 mls/hr IV .Q24H [facility]; Protocol Stop: 10/01/21 20:59 Last Titration: 09/02/21 15:45 Dose: 4.6 units/hr, 4.6 mls/hr Documented by: Potassium Chloride/Dextrose/Sod Cl (D5w And 1/2nss + 20meq Kcl) 20 meq in 1,000 mls @ 150 mls/hr IV .Q6H40M [facility] Stop: 10/02/21 02:44 Last Admin: 09/02/21 09:25 Dose: 150 mls/hr Documented by: Ceftriaxone Sodium 2,000 mg/ (Dextrose) 70 mls @ 100 mls/hr IV Q24H [facility]; Protocol Stop: 09/04/21 02:59 Last Infusion: 09/02/21 04:21 Dose: Infused Documented by: Insulin Aspart (Insulin Aspart Per Unit) 0 units SC ACHS [facility] Stop: 10/02/21 07:29 Last Admin: 09/02/21 11:36 Dose: Not Given Documented by: Insulin Glargine (Insulin Glargine Solostar 100 Units/Ml 3 Ml Pen) 0 units SC HS ONE; Protocol Stop: 09/02/21 21:01 Miscellaneous (Carbohydrates For Hypoglycemia ) 15 - 30 gm PO UD PRN PRN Reason: Hypoglycemia Treatment Stop: 10/02/21 03:14 Miscellaneous Information (Pharmacy Glycemic Mgmt Consult) 1 ea N/A UD PRN PRN Reason: Consult Stop: 10/02/21 02:25 Nitroglycerin (Nitroglycerin Sl 0.4 Mg/Tab Tab) 0.4 mg SL UD PRN PRN Reason: Chest Pain Stop: 10/02/21 02:25 Ondansetron HCl (Ondansetron Inj 2 Mg/Ml 2 Ml Vial) 4 mg IV Q6H PRN PRN Reason: Nausea Stop: 10/02/21 02:25 (1) DKA (diabetic ketoacidosis) Diabetes mellitus complication detail: without coma Diabetes mellitus type: other specified (including PARESH) Qualified Code(s): E13.10 - Other specified diabetes mellitus with ketoacidosis without coma
[2021-09-02] MEDS ORDERED: POTASSIUM PHOS 3 MMOL/1 ML INFUSION IV STA (18:43)
[2021-09-02] MEDS ORDERED: POTASSIUM PHOSPHATE 24 MMOL in SODIUM CHLORIDE 0.9% 500 ML IV ONE (19:00)
[2021-09-02 19:04] LABS: BUN Creatinine Ratio 39.1 (10-20); Calcium 8.2 mg/dl (8.5-10.1); Creatinine Clr Calc Pharmacy 108.6 ml/min; Est GFR (African American) 108.8 ml/min; Est GFR (Non-African American) 93.8 ml/min; Magnesium 2.4 mg/dl (1.8-2.4); Potassium 3.5 mmol/L (3.5-5.1)
[2021-09-02 19:29] LABS: Phosphorus 1.4 mg/dl (2.5-4.9)
[2021-09-02] MEDS: SODIUM CHLORIDE 0.45 % 1,000 ML IV SCH (21:53)
[2021-09-02 23:17] LABS: BUN Creatinine Ratio 32.5 (10-20); Creatinine Clr Calc Pharmacy 109.9 ml/min; Est GFR (African American) 109.3 ml/min; Est GFR (Non-African American) 94.3 ml/min; Magnesium 2.3 mg/dl (1.8-2.4); Potassium 3.8 mmol/L (3.5-5.1)
[2021-09-02 23:25] LABS: Phosphorus 2.2 mg/dl (2.5-4.9)
[2021-09-02] MEDS: INSULIN REGULAR 250 UNITS in SODIUM CHLORIDE 0.9% 247.5 ML IV SCH (23:35)
[2021-09-03] MEDS: INSULIN ASPART PER UNIT SC SCH ×6 (00:03→21:08)
[2021-09-03] MEDS: cefTRIAXone SODIUM 2,000 MG in DEXTROSE 5% 50 ML IV SCH (04:17)
[2021-09-03] MEDS: SODIUM CHLORIDE 0.45 % 1,000 ML IV SCH (06:04)
[2021-09-03 06:11] LABS: Eosinophils # (auto) 0.07 K/uL (0-0.5); Hematocrit (blood only) 40.9 % (42-52); Hemoglobin 13.9 g/dL (14.0-18.0); Immature Granulocytes # (auto) 0.01 K/uL (0.00-0.02); Immature Granulocytes % (auto) 0.1 %; Lymphocytes % (auto) 32.7 %; Mean Corpuscular Hemoglobin 30.2 pg (25-34); Mean Corpuscular Volume 88.7 fL (80-100); Mean Platelet Volume 10.3 fL (7.4-10.4); Monocytes # (auto) 0.59 K/uL (0.11-0.59); Monocytes % (auto) 8.8 %; Neutrophils # (auto) 3.85 K/uL (1.4-6.5); Neutrophils % (auto) 57.4 %; Platelet Count 228 K/uL (130-400); RDW Coefficient of Variation 13.7 % (11.5-14.5); RDW Standard Deviation 44.8 fL (36.4-46.3); Red Blood Count 4.61 M/uL (4.7-6.1); White Blood Count 6.72 K/uL (4.8-10.8)
[2021-09-03 06:32] LABS: BUN Creatinine Ratio 28.5 (10-20); Est GFR (African American) 112.7 ml/min; Est GFR (Non-African American) 97.3 ml/min; Magnesium 2.4 mg/dl (1.8-2.4); Phosphorus 1.8 mg/dl (2.5-4.9); Potassium 3.5 mmol/L (3.5-5.1)
--- NOTE | 2021-09-03 07:19 | Electrocardiogram Report ---
Test Reason : Blood Pressure : / mmHG Vent. Rate : 109 BPM Atrial Rate : 109 BPM P-R Int : 132 ms QRS Dur : 090 ms QT Int : 324 ms P-R-T Axes : 085 088 -53 degrees QTc Int : 436 ms Poor data quality, interpretation may be adversely affected Sinus tachycardia Cannot rule out Anterior infarct , age undetermined T wave abnormality, consider inferior ischemia Abnormal ECG No previous ECGs available Confirmed by Juan Cast ([id number]) on 09/03/2021 7:19:25 AM Referred By: REFERRED SELF Confirmed By:Juan Cast
[2021-09-03] MEDS: ENOXAPARIN INJ 40 MG/0.4 ML SYR SQ SCH (09:14)
[2021-09-03] MEDS: INSULIN GLARGINE SOLOSTAR 100 UNITS/ML 3 ML PEN SC SCH (09:14)
[2021-09-03] MEDS ORDERED: POTASSIUM PHOS 3 MMOL/1 ML INFUSION IV STA (09:14)
[2021-09-03] MEDS ORDERED: POTASSIUM PHOSPHATE 30 MMOL in SODIUM CHLORIDE 0.9% 500 ML IV ONE (09:45)
--- NOTE | 2021-09-03 16:40 | Hospitalist Progress Note ---
Date of Service September 03, 2021 Assessment & Plan (1) DKA (diabetic ketoacidosis): Plan: He has history of diabetes but has not been to a doctor for a long time Was admitted with altered mental status and in an unkept condition Noted to have DKA on admission Has been put on intravenous insulin and fluid with electrolytes Glycemic pharmacy has been consulted Has been feeling better since admission Insulin drip has been discontinued and getting subcu insulin as directed (2) Altered mental status: Plan: Likely secondary to diabetic ketoacidosis Doubt any infection but ceftriaxone has been started Has minimal leukocytosis could be secondary to ketoacidosis Blood cultures have been negative and will discontinue intravenous ceftriaxone Change in mental status -resolved (3) Leukocytosis: Plan: As above Leukocytosis has resolved Mild rhabdomyolysis He was found on the floor CK is 862 Has been getting intravenous fluid and monitor CK-has been improving with check it tomorrow Mild transaminitis Likely secondary to fatty liver We will monitor DVT prophylaxis Subcu Lovenox Admission and Anticipated Discharge Date Admission Date: September 01, 2021 Subjective 09/02/2021 The patient was seen and examined in medical telemetry unit She has been feeling much better and the confusion is seems to be resolving Denies any other symptoms 09/03/2021 The patient was seen and examined in medical telemetry unit He has been feeling much better today No more drowsiness and denies any significant symptoms Review of Systems Review of Systems: All systems reviewed and are unremarkable except as noted below Musculoskeletal: Week Physical Exam Physical Exam: Lying in bed comfortably Constitutional: well developed, well nourished, + ill appearing and + obese Eyes: PERRL, conjunctivae normal, anicteric sclerae ENMT: external ear and nose normal, oropharynx normal Neck: trachea midline, no thyromegaly Respiratory: no respiratory distress Auscultation: lungs clear to ausculta tion bilaterally and + diminished lung sounds Cardiovascular: Rate/Rhythm: regular rate, regular rhythm and + tachycardic Heart Sounds: normal S1 and normal S2; no murmur Extremities: + edema (1+ edema bilaterally) Gastrointestinal (Abdomen): Inspection/Auscultation: + abdomen distended and normal bowel sounds Percussion/Palpation: abdomen soft; abdomen nontender Musculoskeletal: No acute arthritis in any joint Neurologic: Alert, awake and oriented x3. Generally weak but no focal sensory or no motor deficit appreciated Lymphatic: no cervical or axillary lymphadenopathy Results & Data Results & Data ([facility]) Vital Signs (Past 12 Hours) Vital Signs Temp Pulse Pulse Resp BP BP Pulse Ox 09/03/21 16:00 36.9 C 85 18 138/81 95 09/03/21 09:07 36.7 C 93 H 18 128/79 98 09/03/21 07:41 91 H Laboratory Results Short CBC 09/03/21 Range/Units 05:45 WBC 6.72 (4.8-10.8) K/uL Hgb 13.9 L (14.0-18.0) g/dL Hct 40.9 L (42-52) % Plt Count 228 (130-400) K/uL BMP 09/02/21 09/02/21 09/03/21 18:35 22:46 05:45 Sodium 138 139 139 Potassium 3.5 3.8 3.5 Chloride 110 H 110 H 111 H Carbon Dioxide 23 20 L 20 L BUN 33 H 27 H 22 H Creatinine 0.84 0.83 0.77 Glucose 132 H 143 H 171 H Calcium 8.2 L 8.0 L 8.0 L Medications Administered Current Inpatient Medications Acetaminophen (Acetaminophen 325 Mg Tab) 650 mg PO Q4H PRN PRN Reason: Pain or Fever Stop: 10/02/21 02:25 Dextrose (Dextrose 50% 50 Ml Syringe) 25 - 50 ml IV UD PRN; Protocol PRN Reason: Hypoglycemia Protocol Stop: 10/02/21 03:14 Enoxaparin Sodium (Enoxaparin Inj 40 Mg/0.4 Ml Syr) 40 mg SQ Q24H [facility] Stop: 10/02/21 08:59 Last Admin: 09/03/21 09:14 Dose: 40 mg Documented by: Glucagon (Glucagon For Inj 1 Mg Vial) 1 mg IM UD PRN; Protocol PRN Reason: Hypoglycemia Protocol Stop: 10/02/21 03:14 Glucose (Glucose 40% Gel 15 Gm Tube) 15 - 30 gm PO UD PRN; Protocol PRN Reason: Hypoglycemia Protocol Stop: 10/02/21 03:14 Glucose (Glucose 10 Tabs/Tube) 4 - 8 tabs PO UD PRN; Protocol PRN Reason: Hypoglycemia Protocol Stop: 10/02/21 03:14 Ceftriaxone Sodium 2,000 mg/ (Dextrose) 70 mls @ 100 mls/hr IV Q24H [facility]; Pr otocol Stop: 09/04/21 02:59 Last Infusion: 09/03/21 05:17 Dose: Infused Documented by: Insulin Aspart (Insulin Aspart Per Unit) 0 units SC ACHS [facility] Stop: 10/03/21 11:29 Last Admin: 09/03/21 12:18 Dose: 4 units Documented by: Insulin Glargine (Insulin Glargine Solostar 100 Units/Ml 3 Ml Pen) 40 units SC DAILY [facility]; Protocol Stop: 10/03/21 08:59 Last Admin: 09/03/21 09:14 Dose: 40 units Documented by: Miscellaneous (Carbohydrates For Hypoglycemia ) 15 - 30 gm PO UD PRN PRN Reason: Hypoglycemia Treatment Stop: 10/02/21 03:14 Miscellaneous Information (Pharmacy Glycemic Mgmt Consult) 1 ea N/A UD PRN PRN Reason: Consult Stop: 10/02/21 02:25 Nitroglycerin (Nitroglycerin Sl 0.4 Mg/Tab Tab) 0.4 mg SL UD PRN PRN Reason: Chest Pain Stop: 10/02/21 02:25 Ondansetron HCl (Ondansetron Inj 2 Mg/Ml 2 Ml Vial) 4 mg IV Q6H PRN PRN Reason: Nausea Stop: 10/02/21 02:25 (1) DKA (diabetic ketoacidosis) Diabetes mellitus complication detail: without coma Diabetes mellitus type: other specified (including PARESH) Qualified Code(s): E13.10 - Other specified diabetes mellitus with ketoacidosis without coma
[2021-09-03] MEDS ORDERED: LOPERAMIDE HCL 2 MG CAP PO PRN (16:47)
[2021-09-03] MEDS: INSULIN REGULAR 250 UNITS in SODIUM CHLORIDE 0.9% 247.5 ML IV SCH (19:30)
[2021-09-03] MEDS ORDERED: INSULIN ASPART PER UNIT SC SCH (21:30)
[2021-09-04 08:02] LABS: Albumin Globulin Ratio 0.7 (0.9-2); Albumin Level 2.3 gm/dl (3.4-5.0); Bilirubin,Total 0.4 mg/dl (0.2-1); Calcium 7.8 mg/dl (8.5-10.1); Creatinine Clr Calc Pharmacy 133.3 ml/min; Est GFR (African American) 118.6 ml/min; Est GFR (Non-African American) 102.4 ml/min; Globulin 3.4 gm/dl (2.5-4.0); Magnesium 2.4 mg/dl (1.8-2.4); Phosphorus 1.9 mg/dl (2.5-4.9); Potassium 3.3 mmol/L (3.5-5.1); Total Protein 5.7 gm/dl (6.4-8.2)
[2021-09-04] MEDS: INSULIN GLARGINE SOLOSTAR 100 UNITS/ML 3 ML PEN SC SCH (08:51)
[2021-09-04] MEDS: ENOXAPARIN INJ 40 MG/0.4 ML SYR SQ SCH (08:51)
[2021-09-04] MEDS: INSULIN ASPART PER UNIT SC SCH ×4 (08:52→21:01)
[2021-09-04] MEDS ORDERED: POTASSIUM PHOS 3 MMOL/1 ML INFUSION IV STA (08:54)
[2021-09-04] MEDS ORDERED: POTASSIUM PHOSPHATE 30 MMOL in SODIUM CHLORIDE 0.9% 500 ML IV ONE (09:00)
[2021-09-04] MEDS ORDERED: POTASSIUM CHLORIDE CRTAB 20 MEQ TABCR PO STA (13:48)
--- NOTE | 2021-09-04 13:53 | Hospitalist Progress Note ---
Date of Service September 04, 2021 Assessment & Plan (1) DKA (diabetic ketoacidosis): Plan: He has history of diabetes but has not been to a doctor for a long time Was admitted with altered mental status and in an unkept condition Noted to have DKA on admission Has been put on intravenous insulin and fluid with electrolytes Glycemic pharmacy has been consulted Has been feeling better since admission Insulin drip has been discontinued and getting subcu insulin as directed He has been feeling much better and back to his usual insulin Electrolyte imbalance Has low potassium and low phosphate Supplemented and will monitor (2) Altered mental status: Plan: Likely secondary to diabetic ketoacidosis Doubt any infection but ceftriaxone has been started Has minimal leukocytosis could be secondary to ketoacidosis Blood cultures have been negative and will discontinue intravenous ceftriaxone Change in mental status -resolved Denies any more confusion (3) Leukocytosis: Plan: As above Leukocytosis has resolved Blood cultures have been negative Mild rhabdomyolysis He was found on the floor CK is 862 Has been getting intravenous fluid and monitor CK-has been improving with check it tomorrow CK level has come down Mild transaminitis Likely secondary to fatty liver We will monitor-LFTs remains little elevated We will get hepatitis panel DVT prophylaxis Subcu Lovenox Admission and Anticipated Discharge Date Admission Date: September 01, 2021 Subjective 09/02/2021 The patient was seen and examined in medical telemetry unit She has been feeling much better and the confusion is seems to be resolving Denies any other symptoms 09/03/2021 The patient was seen and examined in medical telemetry unit He has been feeling much better today No more drowsiness and denies any significant symptoms 09/04/2021 The patient was seen and examined in medical telemetry unit He complains to have minimal symptoms involving the chest and abdomen which is secondary to discomfort but no definite pain Has been feeling better otherwise Review of Systems Review of Systems: All systems reviewed and are unremarkable except as noted below Musculoskeletal: Week Physical Exam Physical Exam: Lying in bed comfortably Constitutional: well developed, well nourished, + ill appearing and + obese Eyes: PERRL, conjunctivae normal, anicteric sclerae ENMT: external ear and nose normal, oropharynx normal Neck: trachea midline, no thyromegaly Respiratory: no respiratory distress Auscultation: lungs clear to auscultation bilaterally and + diminished lung sounds Cardiovascular: Rate/Rhythm: regular rate, regular rhythm and + tachycardic Heart Sounds: normal S1 and normal S2; no murmur Extremities: + edema (1+ edema bilaterally) Gastrointestinal (Abdomen): Inspection/Auscultation: + abdomen distended and normal bowel sounds Percussion/Palpation: abdomen soft; abdomen nontender Musculoskeletal: No acute arthritis in any joint Neurologic: Alert, awake and oriented x3. No focal sensory and or motor deficit appreciated Lymphatic: no cervical or axillary lymphadenopathy Results & Data Results & Data ([facility]) Vital Signs (Past 12 Hours) Vital Signs Temp Pulse Resp BP BP Pulse Ox 09/04/21 11:20 37.3 C 84 18 143/80 H 96 09/04/21 07:20 36.8 C 85 19 109/72 96 09/04/21 03:47 37.2 C 86 20 109/65 96 Laboratory Results [facility] 09/04/21 06:22 Sodium 141 Potassium 3.3 L Chloride 111 H Carbon Dioxide 24 BUN 12 Creatinine 0.68 Glucose 111 H Calcium 7.8 L Cardiac Enzymes 09/04/21 Range/Units 06:22 Total Creatine Kinase 546 H (39-308) U/L Liver Function 09/04/21 Range/Units 06:22 Total Bilirubin 0.4 (0.2-1) mg/dl AST 90 H (15-37) U/L ALT 111 H (12-78) Alkaline Phosphatase 81 (45-117) U/L Albumin 2.3 L (3.4-5.0) gm/dl Medications Administered Current Inpatient Medications Acetaminophen (Acetaminophen 325 Mg Tab) 650 mg PO Q4H PRN PRN Reason: Pain or Fever Stop: 10/02/21 02:25 Dextrose (Dextrose 50% 50 Ml Syringe) 25 - 50 ml IV UD PRN; Protocol PRN Reason: Hypoglycemia Protocol Stop: 10/02/21 03:14 Enoxaparin Sodium (Enoxaparin Inj 40 Mg/0.4 Ml Syr) 40 mg SQ Q24H [facility] Stop: 10/02/21 08:59 Last Admin: 09/04/21 08:51 Dose: 40 mg Documented by: Glucagon (Glucagon For Inj 1 Mg Vial) 1 mg IM UD PRN; Protocol PRN Reason: Hypoglycemia Protocol Stop: 10/02/21 03:14 Glucose (Glucose 40% Gel 15 Gm Tube) 15 - 30 gm PO UD PRN; Protocol PRN Reason: Hypoglycemia Protocol Stop: 10/02/21 03:14 Glucose (Glucose 10 Tabs/Tube) 4 - 8 tabs PO UD PRN; Protocol PRN Reason: Hypoglycemia Protocol Stop: 10/02/21 03:14 Potassium Phosphate 30 mmol/ (Sodium Chloride) 510 mls @ 102 mls/hr IV ONE ONE Stop: 09/04/21 13:59 Last Admin: 09/04/21 10:29 Dose: 102 mls/hr Documented by: Insulin Aspart (Insulin Aspart Per Unit) 0 units SC ACHS [facility] Stop: 10/03/21 11:29 Last Admin: 09/04/21 12:46 Dose: 1 units Documented by: Insulin Glargine (Insulin Glargine Solostar 100 Units/Ml 3 Ml Pen) 40 units SC DAILY [facility]; Protocol Stop: 10/03/21 08:59 Last Admin: 09/04/21 08:51 Dose: 40 units Documented by: Loperamide HCl (Loperamide Hcl 2 Mg Cap) 2 mg PO Q3H PRN PRN Reason: Diarrhea Stop: 10/03/21 16:46 Miscellaneous (Carbohydrates For Hypoglycemia ) 15 - 30 gm PO UD PRN PRN Reason: Hypoglycemia Treatment Stop: 10/02/21 03:14 Miscellaneous Information (Pharmacy Glycemic Mgmt Consult) 1 ea N/A UD PRN PRN Reason: Consult Stop: 10/02/21 02:25 Nitroglycerin (Nitroglycerin Sl 0.4 Mg/Tab Tab) 0.4 mg SL UD PRN PRN Reason: Chest Pain Stop: 10/02/21 02:25 Ondansetron HCl (Ondansetron Inj 2 Mg/Ml 2 Ml Vial) 4 mg IV Q6H PRN PRN Reason: Nausea Stop: 10/02/21 02:25 Potassium Chloride (Potassium Chloride Crtab 20 Meq Tabcr) 40 meq PO NOW STA Stop: 09/04/21 13:49 (1) DKA (diabetic ketoacidosis) Diabetes mellitus complication detail: without coma Diabetes mellitus type: other specified (including PARESH) Qualified Code(s): E13.10 - Other specified diabetes mellitus with ketoacidosis without coma
[2021-09-05 06:36] LABS: BUN Creatinine Ratio 16.3 (10-20); Calcium 7.8 mg/dl (8.5-10.1); Creatinine Clr Calc Pharmacy 146.5 ml/min; Est GFR (African American) 123.2 ml/min; Est GFR (Non-African American) 106.3 ml/min; Phosphorus 1.9 mg/dl (2.5-4.9); Potassium 3.7 mmol/L (3.5-5.1)
[2021-09-05] MEDS ORDERED: POTASSIUM PHOS 3 MMOL/1 ML INFUSION IV STA (08:16)
[2021-09-05] MEDS: INSULIN GLARGINE SOLOSTAR 100 UNITS/ML 3 ML PEN SC SCH (08:20)
[2021-09-05] MEDS: ENOXAPARIN INJ 40 MG/0.4 ML SYR SQ SCH (08:22)
[2021-09-05] MEDS: INSULIN ASPART PER UNIT SC SCH ×4 (08:22→20:51)
[2021-09-05] MEDS ORDERED: POTASSIUM PHOSPHATE 30 MMOL in SODIUM CHLORIDE 0.9% 500 ML IV ONE (08:45)
--- NOTE | 2021-09-05 10:51 | Pharmacy Report ---
Pharmacy Glycemic Short Note 2 - Date of Service September 05, 2021 - Glycemic Short BSG Results (Last 24 hours): 09/04/21 09/04/21 09/04/21 11:40 16:42 20:02 Glucose POC Glucose 135 H 126 H 121 H 09/05/21 09/05/21 05:48 07:36 Glucose 115 H POC Glucose 121 H OUTPATIENT ANTIDIABETIC REGIMEN: * N/A * A1c 14.6% 09/02/21 ASSESSMENT: 09/05 * Pt has received 41 units of insulin over the past 24hrs * 40 units of basal with Lantus * 1 units of bolus with NovoLog * BSGs all in goal range with current orders. Very minimal PO intake hence minimal amount of Novolog given. Fasting BSgs in goal range with current basal orders therefore no adjustment needed for NPO 09/02/21 * 61 year old admitted with AMS, DKA, uncontrolled diabetic on no anti-diabetic medications at home. * Started on insulin drip and DKA protocol last night, remains on D51/2NS + 20KCl IVF, IV Ceftriaxone, patient is NPO * Drip rat running 10-3.8units/hr, in goal range, anion gap closed * Start basal insulin at this time, overlap x 6 hours or stop insulin drip when it turns off per calculator PLAN FOR INPATIENT GLYCEMIC CONTROL: * IV Insulin drip, goal range 110-180mg/dl * Basal insulin * Lantus 40 units SQ daily in AM (ok to give if little/no PO intake) * Bolus insulin: * NovoLog per scale ACHS or Q6hrs while NPO * Goal Range: Low 110 mg/dL - High 140 mg/dL * Correction Factor: 25 mg/dL/unit * Nutritional / Prandial insulin per carb ratio of 1 unit per 8 grams CHO consumed PLAN FOR DISCHARGE: * to be determined, recommend at least once daily Lantus
--- NOTE | 2021-09-05 12:51 | Hospitalist Progress Note ---
Date of Service September 05, 2021 Assessment & Plan (1) DKA (diabetic ketoacidosis): Plan: He has history of diabetes but has not been to a doctor for a long time Was admitted with altered mental status and in an unkept condition Noted to have DKA on admission Has been put on intravenous insulin and fluid with electrolytes Glycemic pharmacy has been consulted Has been feeling better since admission Insulin drip has been discontinued and getting subcu insulin as directed He has been feeling much better and back to his usual insulin We will get PT and OT and possible discharge tomorrow Electrolyte imbalance Has low potassium and low phosphate Supplemented and will monitor Phosphate remains low and will be supplemented-recheck in a.m. (2) Altered mental status: Plan: Likely secondary to diabetic ketoacidosis Doubt any infection but ceftriaxone has been started Has minimal leukocytosis could be secondary to ketoacidosis Blood cultures have been negative and will discontinue intravenous ceftriaxone Change in mental status -resolved Denies any more confusion (3) Leukocytosis: Plan: As above Leukocytosis has resolved Blood cultures have been negative Mild rhabdomyolysis He was found on the floor CK is 862 Has been getting intravenous fluid and monitor CK-has been improving with check it tomorrow CK level has come down Advised to drink more fluid Mild transaminitis Likely secondary to fatty liver We will monitor-LFTs remains little elevated We will get hepatitis panel-pending DVT prophylaxis Subcu Lovenox CODE STATUS Full Admission and Anticipated Discharge Date Admission Date: September 01, 2021 Subjective 09/02/2021 The patient was seen and examined in medical telemetry unit She has been feeling much better and the confusion is seems to be resolving Denies any other symptoms 09/03/2021 The patient was seen and examined in medical telemetry unit He has been feeling much better today No more drowsiness and denies any significant symptoms 09/04/2021 The patient was seen and examined in medical telemetry unit He complains to have minimal symptoms involving the chest and abdomen which is secondary to discomfort but no definite pain Has been feeling better otherwise 09/05/2021 The patient was seen and examined in medical telemetry unit He has been feeling much better Complains to have minimal symptoms which is very nonspecific His diarrhea has been controlled Review of Systems Review of Systems: All systems reviewed and are unremarkable except as noted below Musculoskeletal: Week Physical Exam Physical Exam: Lying in bed comfortably Constitutional: well developed, well nourished, + ill appearing and + obese Eyes: PERRL, conjunctivae normal, anicteric sclerae ENMT: external ear and nose normal, oropharynx normal Neck: trachea midline, no thyromegaly Respiratory: no respiratory distress Auscultation: lungs clear to auscultation bilaterally and + diminished lung sounds Cardiovascular: Rate/Rhythm: regular rate, regular rhythm and + tachycardic Heart Sounds: normal S1 and normal S2; no murmur Extremities: + edema (1+ edema bilaterally) Gastrointestinal (Abdomen): Inspection/Auscultation: + abdomen distended and normal bowel sounds Percussion/Palpation: abdomen soft; abdomen nontender Musculoskeletal: No acute arthritis in any joint Neurologic: Alert, awake and oriented x3. He is generally weak and lethargic Lymphatic: no cervical or axillary lymphadenopathy Results & Data Results & Data ([facility]) Vital Signs (Past 12 Hours) Vital Signs Temp Pulse Pulse Resp BP Pulse Ox 09/05/21 11:00 36.7 C 94 H 20 147/91 H 97 09/05/21 10:51 79 09/05/21 08:00 36.7 C 80 20 116/71 97 09/05/21 03:02 37.3 C 79 20 110/72 97 Laboratory Results [facility] 09/05/21 05:48 Sodium 140 Potassium 3.7 Chloride 111 H Carbon Dioxide 21 BUN 10 Creatinine 0.62 Glucose 115 H Calcium 7.8 L Medications Administered Current Inpatient Medications Acetaminophen (Acetaminophen 325 Mg Tab) 650 mg PO Q4H PRN PRN Reason: Pain or Fever Stop: 10/02/21 02:25 Dextrose (Dextrose 50% 50 Ml Syringe) 25 - 50 ml IV UD PRN; Protocol PRN Reason: Hypoglycemia Protocol Stop: 10/02/21 03:14 Enoxaparin Sodium (Enoxaparin Inj 40 Mg/0.4 Ml Syr) 40 mg SQ Q24H [facility] Stop: 10/02/21 08:59 Last Admin: 09/05/21 08:22 Dose: 40 mg Documented by: Glucagon (Glucagon For Inj 1 Mg Vial) 1 mg IM UD PRN; Protocol PRN Reason: Hypoglycemia Protocol Stop: 10/02/21 03:14 Glucose (Glucose 40% Gel 15 Gm Tube) 15 - 30 gm PO UD PRN; Protocol PRN Reason: Hypoglycemia Protocol Stop: 10/02/21 03:14 Glucose (Glucose 10 Tabs/Tube) 4 - 8 tabs PO UD PRN; Protocol PRN Reason: Hypoglycemia Protocol Stop: 10/02/21 03:14 Potassium Phosphate 30 mmol/ (Sodium Chloride) 510 mls @ 88 mls/hr IV 0845 ONE Stop: 09/05/21 14:32 Last Admin: 09/05/21 08:37 Dose: 88 mls/hr Documented by: Insulin Aspart (Insulin Aspart Per Unit) 0 units SC ACHS NANO Stop: 10/03/21 11:29 Last Admin: 09/05/21 12:09 Dose: 4 units Documented by: Insulin Glargine (Insulin Glargine Solostar 100 Units/Ml 3 Ml Pen) 40 units SC DAILY NANO; Protocol Stop: 10/03/21 08:59 Last Admin: 09/05/21 08:20 Dose: 40 units Documented by: Loperamide HCl (Loperamide Hcl 2 Mg Cap) 2 mg PO Q3H PRN PRN Reason: Diarrhea Stop: 10/03/21 16:46 Miscellaneous (Carbohydrates For Hypoglycemia ) 15 - 30 gm PO UD PRN PRN Reason: Hypoglycemia Treatment Stop: 10/02/21 03:14 Miscellaneous Information (Pharmacy Glycemic Mgmt Consult) 1 ea N/A UD PRN PRN Reason: Consult Stop: 10/02/21 02:25 Nitroglycerin (Nitroglycerin Sl 0.4 Mg/Tab Tab) 0.4 mg SL UD PRN PRN Reason: Chest Pain Stop: 10/02/21 02:25 Ondansetron HCl (Ondansetron Inj 2 Mg/Ml 2 Ml Vial) 4 mg IV Q6H PRN PRN Reason: Nausea Stop: 10/02/21 02:25 (1) DKA (diabetic ketoacidosis) Diabetes mellitus complication detail: without coma Diabetes mellitus type: other specified (including PARESH) Qualified Code(s): E13.10 - Other specified diabetes mellitus with ketoacidosis without coma
[2021-09-06 07:39] LABS: Basophils # (auto) 0.02 K/uL (0-0.2); Basophils % (auto) 0.3 %; Eosinophils # (auto) 0.14 K/uL (0-0.5); Eosinophils % (auto) 2.3 %; Hematocrit (blood only) 38.2 % (42-52); Hemoglobin 12.6 g/dL (14.0-18.0); Immature Granulocytes # (auto) 0.03 K/uL (0.00-0.02); Immature Granulocytes % (auto) 0.5 %; Lymphocytes # (auto) 2.72 K/uL (1.2-3.4); Mean Corpuscular Hemoglobin 29.6 pg (25-34); Mean Corpuscular Volume 89.9 fL (80-100); Monocytes # (auto) 0.47 K/uL (0.11-0.59); Monocytes % (auto) 7.6 %; Neutrophils % (auto) 45.3 %; Platelet Count 232 K/uL (130-400); RDW Coefficient of Variation 13.2 % (11.5-14.5); RDW Standard Deviation 43.3 fL (36.4-46.3); Red Blood Count 4.25 M/uL (4.7-6.1); White Blood Count 6.18 K/uL (4.8-10.8)
[2021-09-06] MEDS: INSULIN ASPART PER UNIT SC SCH ×2 (08:01→12:42)
[2021-09-06] MEDS: ENOXAPARIN INJ 40 MG/0.4 ML SYR SQ SCH (08:01)
[2021-09-06] MEDS: INSULIN GLARGINE SOLOSTAR 100 UNITS/ML 3 ML PEN SC SCH (08:01)
[2021-09-06 08:10] LABS: Calcium 7.8 mg/dl (8.5-10.1); Creatinine Clr Calc Pharmacy 151.9 ml/min; Est GFR (African American) 125.8 ml/min; Est GFR (Non-African American) 108.5 ml/min; Magnesium 2.3 mg/dl (1.8-2.4); Potassium 3.8 mmol/L (3.5-5.1)
[2021-09-06 08:11] LABS: Phosphorus 2.2 mg/dl (2.5-4.9)
[2021-09-06] MEDS ORDERED: POT PHOSPHATE MONOBASIC W/ SOD TAB PO SCH (09:00)
[2021-09-06 10:36] LABS: Hepatitis B Surf Ag Rflx Conf Neg (Neg)
[2021-09-06 11:05] LABS: Hepatitis C IgG 13Yrs+Old_Rflx Neg (Neg)
--- NOTE | 2021-09-06 11:32 | Hospitalist Progress Note ---
Date of Service September 06, 2021 Assessment & Plan (1) DKA (diabetic ketoacidosis): Plan: He has history of diabetes but has not been to a doctor for a long time Was admitted with altered mental status and in an unkept condition Noted to have DKA on admission Has been put on intravenous insulin and fluid with electrolytes Glycemic pharmacy has been consulted Has been feeling better since admission Insulin drip has been discontinued and getting subcu insulin as directed He has been feeling much better and back to his usual insulin We will get PT and OT and possible discharge tomorrow He will need Lantus and Metformin orally on discharge which were sent to his pharmacy Has had diabetic education regarding diet and how to check blood sugar and keep a record of that He was strongly advised to keep appointments with his healthcare providers Electrolyte imbalance Has low potassium and low phosphate Supplemented and will monitor Phosphate remains low and will be supplemented-recheck in a.m. Oral phosphate was prescribed (2) Altered mental status: Plan: Likely secondary to diabetic ketoacidosis Doubt any infection but ceftriaxone has been started Has minimal leukocytosis could be secondary to ketoacidosis Blood cultures have been negative and will discontinue intravenous ceftriaxone Change in mental status -resolved Denies any more confusion-resolved (3) Leukocytosis: Plan: As above Leukocytosis has resolved Blood cultures have been negative Mild rhabdomyolysis He was found on the floor CK is 862 Has been getting intravenous fluid and monitor CK-has been improving with check it tomorrow CK level has come down Advised to drink more fluid Mild transaminitis Likely secondary to fatty liver We will monitor-LFTs remains little elevated We will get hepatitis panel-pending DVT prophylaxis Subcu Lovenox CODE STATUS Full Discharge home this afternoon Admission and Anticipated Discharge Date Admission Date: September 01, 2021 Subjective 09/02/2021 The patient was seen and examined in medical telemetry unit She has been feeling much better and the confusion is seems to be resolving Denies any other symptoms 09/03/2021 The patient was seen and examined in medical telemetry unit He has been feeling much better today No more drowsiness and denies any significant symptoms 09/04/2021 The patient was seen and examined in medical telemetry unit He complains to have minimal symptoms involving the chest and abdomen which is secondary to discomfort but no definite pain Has been feeling better otherwise 09/05/2021 The patient was seen and examined in medical telemetry unit He has been feeling much better Complains to have minimal symptoms which is very nonspecific His diarrhea has been controlled 09/06/2021 The patient was seen and examined in medical telemetry unit He has been feeling much better and wants to leave the hospital Denies any symptoms whatsoever Has been ambulating without any problem Review of Systems 2 Review of Systems: All systems reviewed and are unremarkable except as noted below Musculoskeletal: Week Physical Exam Physical Exam: Lying in bed comfortably Constitutional: well developed, well nourished, + ill appearing and + obese Eyes: PERRL, conjunctivae normal, anicteric sclerae ENMT: external ear and nose normal, oropharynx normal Neck: trachea midline, no thyromegaly Respiratory: no respiratory distress Auscultation: lungs clear to auscultation bilaterally and + diminished lung sounds Cardiovascular: Rate/Rhythm: regular rate, regular rhythm and + tachycardic Heart Sounds: normal S1 and normal S2; no murmur Extremities: + edema (1+ edema bilaterally) Gastrointestinal (Abdomen): Inspection/Auscultation: + abdomen distended and normal bowel sounds Percussion/Palpation: abdomen soft; abdomen nontender Musculoskeletal: No acute arthritis in any joint Neurologic: Alert, awake and oriented x3. No focal sensory or motor deficit appreciated Lymphatic: no cervical or axillary lymphadenopathy Results & Data Results & Data ([facility]) Vital Signs (Past 12 Hours) Vital Signs Temp Pulse Pulse Resp BP Pulse Ox 09/06/21 11:07 78 09/06/21 07:56 36.8 C 82 20 124/76 98 09/06/21 04:00 36.9 C 83 20 152/81 H 97 Laboratory Results Short CBC 09/06/21 Range/Units 07:25 WBC 6.18 (4.8-10.8) K/uL Hgb 12.6 L (14.0-18.0) g/dL Hct 38.2 L (42-52) % Plt Count 232 (130-400) K/uL BMP 09/06/21 07:25 Sodium 140 Potassium 3.8 Chloride 110 H Carbon Dioxide 23 BUN 9 Creatinine 0.59 L Glucose 112 H Calcium 7.8 L (1) DKA (diabetic ketoacidosis) Diabetes mellitus complication detail: without coma Diabetes mellitus type: other specified (including PARESH) Qualified Code(s): E13.10 - Other specified diabetes mellitus with ketoacidosis without coma
--- NOTE | 2021-09-06 17:38 | Discharge Summary ---
Date of Service September 06, 2021 Admission HPI Per Admitting Provider DICTATED BY:Rajan Hoffman MD DATE OF ADMISSION: 09/01/2021. CHIEF COMPLAINT: Altered mental status, DKA. HISTORY OF PRESENT ILLNESS: This is a 61-year-old male with past medical hi story significant for diabetes. The patient says he was told he was diabetic a long time back in [facility] but not taking any meds..He does not go to the doctor often. He denies any other medical problems, not on any medication at home. He was found to be confused in his camper and with feces all over. The patient says he fell a couple of days ago and he was having imbalance and could not get up. He says he is drinking lot of milk. He says his neighbor found him. Currently, he is alert and awake. Can answer simple questions. Somewhat slow to answer, but answers appropriately. Denies any fever or chills. Denies any cough. No chest pain, no shortness of breath. Denies any nausea, denies any headache. No neck pain, no back pain, no abdominal pain. Has some mild sore throat. Says he had some mild chest pain before, but that is resolved now. Denies any shortness of breath. He has normal bladder movements. He states he smoked half pack of cigarettes for many, many years and occasional alcohol. He smokes marijuana occasionally. He is not COVID vaccinated or flu vaccinated. Currently is somewhat tachycardic. Blood pressure is okay. Saturating okay on room air. Admission Exam Per Admitting Provider GENERAL: The patient is alert and awake, not in acute distress. VITAL SIGNS: Temperature 36.2, pulse 118, respiratory rate 18, blood pressure 152/99, oxygen 97% on room air. HEENT: Pupils equal, round and reactive to light. Oral mucosa moist. NECK: No JVD, no neck masses. CARDIOVASCULAR: S1 and S2 heard. Tachycardia. No murmurs. RESPIRATORY SYSTEM: Normal AP diameter. No accessory muscle use. No wheezing, no crackles. ABDOMEN: Soft, bowel sounds present, nontender, no distention. CENTRAL NERVOUS SYSTEM: Alert, awake, and seems oriented. Speech is clear, somewhat slow to speak. No facial droop. Obeys simple commands. Moves extremities. Insight okay. EXTREMITIES: No edema, no erythema. Principal Diagnosis DKA Discharge Exam Lying in bed comfortably Constitutional well developed, well nourished, + ill appearing and + obese Eyes PERRL, conjunctivae normal, anicteric sclerae ENMT external ear and nose normal, oropharynx normal Neck trachea midline, no thyromegaly Respiratory no respiratory distress Auscultation: lungs clear to auscultation bilaterally and + diminished lung sounds Cardiovascular Rate/Rhythm: regular rate, regular rhythm and + tachycardic Heart Sounds: normal S1 and normal S2; no murmur Extremities: + edema (1+ edema bilaterally) Gastrointestinal (Abdomen) Inspection/Auscultation: + abdomen distended and normal bowel sounds Percussion/Palpation: abdomen soft; abdomen nontender Lymphatic no cervical or axillary lymphadenopathy Discharge Data Allergies Allergy/AdvReac Type Severity Reaction Status Date / Time No Known Allergies Allergy Verified 09/01/21 20:20 Consultations 09/01/21 22:07 ED Decision to Admit Stat Ordered Studies 09/01/21 21:07 CT head/brain wo con Urgent Diabetes Follow up Diabetes Follow-up Needed for HgbA1c >9% Hospital Course (1) DKA (diabetic ketoacidosis): He has history of diabetes but has not been to a doctor for a long time Was admitted with altered mental status and in an unkept condition Noted to have DKA on admission Has been put on intravenous insulin and fluid with electrolytes Glycemic pharmacy has been consulted Has been feeling better since admission Insulin drip has been discontinued and getting subcu insulin as directed He has been feeling much better and back to his usual insulin We will get PT and OT and possible discharge tomorrow He will need Lantus and Metformin orally on discharge which were sent to his pharmacy Has had diabetic education regarding diet and how to check blood sugar and keep a record of that He was strongly advised to keep appointments with his healthcare providers Electrolyte imbalance Has low potassium and low phosphate Supplemented and will monitor Phosphate remains low and will be supplemented-recheck in a.m. Oral phosphate was prescribed (2) Altered mental status: Likely secondary to diabetic ketoacidosis Doubt any infection but ceftriaxone has been started Has minimal leukocytosis could be secondary to ketoacidosis Blood cultures have been negative and will discontinue intravenous ceftriaxone Change in mental status -resolved Denies any more confusion-resolved (3) Leukocytosis: As above Leukocytosis has resolved Blood cultures have been negative Mild rhabdomyolysis He was found on the floor CK is 862 Has been getting intravenous fluid and monitor CK-has been improving with check it tomorrow CK level has come down Advised to drink more fluid Mild transaminitis Likely secondary to fatty liver We will monitor-LFTs remains little elevated We will get hepatitis panel-pending DVT prophylaxis Subcu Lovenox CODE STATUS Full Discharge home this afternoon Total Time Total Time Spent Total Time Spent (In Minutes): 40 minutes Discharge Plan Discharge Items Patient Disposition: Home - Home Health Services Reason For Visit: ILLNESS Discharge Diagnosis: DKA Condition on Discharge: Good Activity: Resume your previous activity Non-emergency contact: Primary Care Provider Call non-emergency contact if: you have any medication questions and your symptoms worsen Follow-up/Referrals: PCP,NO [Primary Care Provider] - Diet: Carb Consistent or DM2 Addtl Attending Provider Instructions: Please follow diabetic diet as advised Take your medications and insulin as directed Check your blood sugar as advised below: 1.) OneTouch Verio Test Strips - to check 3x/day. 2.) OneTouch Delica Lancets 33 gauge - to check 3x/day. 3.) Pen [place] - 32 gauge x 5/32". We will call you with an appointment with your primary care provider within 7 days Take precautions to avoid falls Pending Studies at Discharge: No Stand-Alone Forms: My [facility] [employer], Smoking Cessation Medications and DC Order Prescriptions: New Phospha 250 Neutral 250 mg Tablet 2 tab PO BID 60 Days Qty: 240 RF: 0 Lantus Solostar U-100 Insulin 100 unit/mL (3 mL) Insulin Pen 35 unit SC DAILY Qty: 15 RF: 0 metformin 500 mg tablet extended release 24 hr 500 mg PO DAILY Qty: 30 RF: 0 (DME) pen needle, diabetic [Pen Needle] 32 gauge x 5/32" needle See Rx Instructions .Route Qty: 100 RF: 0 (DME) lancets [OneTouch Delica Plus Lancet] 33 gauge misc See Rx Instructions .Route Qty: 100 RF: 0 (DME) blood sugar diagnostic Strip See Rx Instructions .Route Qty: 100 RF: 0 Continued vitamin E 400 unit Capsule 0 unit PO DAILY RF: 0 Discharge Orders: Discharge Order (Routine); Ordered 09/06/21 Ordered By: Roberto Farris Admission Data Admit Date/Time: 09/01/21 23:49 Attending Provider: Roberto Farris Admit Provider: Rajan Hoffman Primary Care Provider: PCP,NO Other Providers: Rajan Hoffman ; [place],[facility] Other Interventions: Discharge Summary Assessment (RN) Last Done: 09/06/21 11:58
[2021-09-07 03:26] LABS: Hepatitis A Antibody IgM NON-REACTIVE (NON-REACTIVE); Hepatitis B Core Antibody IgM NON-REACTIVE (NON-REACTIVE)
== END 2021-09-06 13:43 | disposition home health service (06) | DRG 637 ==
LOC: ED 18:21 → EDINP 23:49 → 2N 09-02 15:31